=== PATIENT | female | born 1985 | race Two or more races ===

== ENCOUNTER 2018-01-12 15:40 | Emergency (ER) | payer SELFPAY ==
[~2018-01-12] VITALS: Ht 162.6 cm; Wt 54.4 kg
[2018-01-12 16:56] VITALS: BP 115/70
== END 2018-01-12 16:58 | disposition home or self-care (01) ==
LOC: ER 15:48
DX: R41.9 Unspecified symptoms and signs involving cognitive functions and awareness (principal)
CPT/HCPCS: 93005